=== PATIENT | male | born 1980 | race Caucasian/White ===

== ENCOUNTER 2016-08-22 15:43 | Emergency (ER) | payer BC, OTHER ==
[2016-08-22] MEDS ORDERED: HYDROmorphone 1 MG/ML Syringe IM ONE (16:33)
[2016-08-22] MEDS ORDERED: Cyclobenzaprine 10 MG Tab PO ONE (16:34)
[2016-08-22] MEDS ORDERED: Ketorolac 60 MG/2 ML SDV IM ONE (16:34)
--- NOTE | 2016-08-22 16:39 | EDM.PDOC ---
ED HPI GENERAL MEDICAL PROBLEM - General Chief Complaint: Back Pain or Injury Stated Complaint: BACK INJURY Time Seen by Provider: 08/22/16 16:10 Source of Information: Reports: Patient History Limitations: Reports: No Limitations - History of Present Illness INITIAL COMMENTS - FREE TEXT/NARRATIVE: Patient is a 35-year-old male who presents to the ED complaining of left lower back pain with radiation of discomfort to the left lateral thigh. Patient states last Sunday in preparation for a inspection at work he was lifting multiple heavy items and performing multiple rotational movements. States over the course of the week the pain to his back as increased to the point it is difficult for him to move. Pain is constant with waxing waning intensity dependent on his movement. Patient denies previous history of back injuries. Denies any incontinence to urine or stool, saddle anesthesia, n/t to his lower extremities, or pain radiating down the posterior aspect of his leg. Pain is described as sharp sensation 5 out of 10 with admission to the ED. Patient has a past history of acid reflux and takes omeprazole. He has no surgical history. Of note patient [facility]. He was on chronic pain therapies for fibromyalgia. He has not been on any narcotics or neuropathic medicine for quite some time. He has taken Dilaudid in the past with no complications. Left Lower Back Pain Score (Numeric/FACES): 5 - Related Data Allergies Allergy/AdvReac Type Severity Reaction Status Date / Time tramadol HCl [From Ultram] Allergy Cannot Verified 08/22/16 15:56 Remember Home Meds: Home Meds Cyclobenzaprine [Flexeril] 10 mg PO TID PRN #10 tablet 08/22/16 [Rx] Hydrocodone/Acetaminophen [[place] 5-325] 1 tab PO Q6H PRN #8 tablet 08/22/16 [Rx] Omeprazole 20 mg PO DAILY 08/22/16 [History] Ondansetron [Zofran ODT] 4 mg PO Q6H PRN #8 tab.dis 08/22/16 [Rx] Past Medical History Other Neuro History: FIBRAMYALGIA Social & Family History - Family History Family Medical History: Noncontributory - Tobacco Use Smoking Status *Q: Current Every Day Smoker Years of Tobacco use: 20 Packs/Tins Daily: 1 - Caffeine Use Caffeine Use: Reports: Coffee, Soda - Recreational Drug Use Recreational Drug Use: No ED ROS GENERAL - Review of Systems Review Of Systems: ROS reveals no pertinent complaints other than HPI. ED EXAM,LOWER BACK PAIN/INJURY - Physical Exam Exam: See Below Exam Limited By: No Limitations General Appearance: Alert, WD/WN, Mild Distress Ears: Hearing Grossly Normal Nose: Normal Inspection Throat/Mouth: Normal Voice, No Airway Compromise Neck: Normal Inspection, Supple, Non-Tender, Full Range of Motion Respiratory/Chest: No Respiratory Distress, Lungs Clear, Normal Breath Sounds, No Accessory Muscle Use, Chest Non-Tender Cardiovascular: Normal Peripheral Pulses, Regular Rate, Rhythm GI/Abdominal: Normal Bowel Sounds, Soft, Non-Tender, No Organomegaly, No Distention Back Exam: Normal Inspection, Decreased Range of Motion, Paraspinal Tenderness ( left lower back), Vertebral Tenderness (l4/l5), Other (Pain along the left SI joint with palpation) Extremities: Normal Inspection, Normal Capillary Refill Neurological: Alert, Normal Mood/Affect, Normal Dorsiflexion, Normal Plantar Flexion, No Motor/Sensory Deficits, Oriented x 3. No: Normal Gait, Straight Leg Raise (L), Straight Leg Raise (R) Psychiatric: Normal Affect, Normal Mood Skin Exam: Warm, Dry, Intact, Normal Color Course - Vital Signs Last Recorded V/S: Last Vital Signs Temp 98.1 F 08/22/16 15:53 Pulse 72 08/22/16 17:34 Resp 16 08/22/16 17:34 BP 142/107 H 08/22/16 17:34 Pulse Ox 100 08/22/16 17:34 - Orders/Labs/Meds Meds: Medications Discontinued Medications Generic Name Dose Route Start Last Admin Trade Name Marquis PRN Reason Stop Dose Admin Cyclobenzaprine HCl 10 mg 08/22/16 16:34 08/22/16 16:51 Flexeril PO 08/22/16 16:35 10 mg ONETIME ONE Administration Hydromorphone HCl 1 mg 08/22/16 16:33 08/22/16 16:51 Dilaudid IM 08/22/16 16:34 1 mg ONETIME ONE Administration Ketorolac Tromethamine 60 mg 08/22/16 16:34 08/22/16 16:53 Toradol IM 08/22/16 16:35 60 mg ONETIME ONE Administration - Re-Assessments/Exams Free Text/Narrative Re-Assessment/Exam: Ordered Dilaudid 1 mg IM, Flexeril 10 mg by mouth, and Toradol 60 mg IM. Patient has had significant relief with the above therapies. Will discharge patient home with instructions as documented. Departure - Departure Time of Disposition: 17:34 Disposition: Home, Self-Care 01 Condition: Good Clinical Impression: Low back pain Qualifiers: Chronicity: acute Back pain laterality: unspecified Sciatica presence: without sciatica Qualified Code(s): M54.5 - Low back pain - Discharge Information Prescriptions: Cyclobenzaprine [Flexeril] 10 mg PO TID PRN #10 tablet PRN Reason: Muscle Spasm Hydrocodone/Acetaminophen [[place] 5-325] 1 tab PO Q6H PRN #8 tablet PRN Reason: Pain (Severe 7-10) Ondansetron [Zofran ODT] 4 mg PO Q6H PRN #8 tab.dis PRN Reason: Nausea Instructions: Pain Medicine Instructions, [id number] Referrals: PCP,None [Primary Care Provider] - Forms: ED Department Discharge, Return to Work/School Form Additional Instructions: Refrain from any activities that cause worsening pain. Can apply warm compresses to the affected area as needed for pain relief. Take Tylenol and ibuprofen in alternating fashion for pain. For severe pain take [place] one tab every 6 hours as needed. In addition take Flexeril 10 mg 3 times a day for muscle spasms. For nausea take Zofran 4 mg ODT every 6 hours. Follow-up with your primary care provider for further pain management and treatment. Return to the ED for any new or worsening symptoms. No driving while taking Flexeril and [place] due to sedative side effects. No driving today since receiving a sedative medication while in the ED.
[2016-08-22 17:38] VITALS: BP 142/107
== END 2016-08-22 17:34 | disposition home or self-care (01) ==
LOC: JD.ED 15:43
DX: M54.5 Low back pain (principal); F17.210 Nicotine dependence, cigarettes, uncomplicated; Z79.899 Other long term (current) drug therapy; Z88.5 Allergy status to narcotic agent
CPT/HCPCS: 96372; 99283; A9270; J1170; J1885